=== PATIENT | female | born 1965 | race Caucasian/White ===

== ENCOUNTER 2020-07-14 18:51 | Emergency (ER) | payer OTHER, SELFPAY ==
--- NOTE | ~2020-07-14 | CT_ITS ---
EXAMINATION: CT HEAD WITHOUT CONTRAST CT CERVICAL SPINE WITHOUT CONTRAST CLINICAL INFORMATION: Trauma COMPARISON: None. TECHNIQUE: Multidetector CT imaging of the head and cervical spine was performed without the use of intravenous contrast. Multiplanar reformats are reviewed. This CT examination was performed using dose optimization techniques as appropriate, variously including the following: *Automated exposure control *Adjustment of mA and/or kV according to patient size (this includes techniques or standardized protocols for targeted exams where dose is matched to indication/reason for exam; i.e. extremities or head) *Use of iterative reconstruction technique DLP: 970 mGy-cm. FINDINGS: There is no evidence of acute intracranial hemorrhage or territorial infarction. No abnormal mass effect or midline shift is seen. Carcamo to white matter differentiation is well preserved. No extra-axial fluid collections are identified. The ventricles are normal in size. There is no abnormal attenuation within the brain parenchyma. Right frontotemporal subgaleal hematoma. Underlying calvarium intact.. Small mucous retention cyst present within the left maxillary sinus. Remainder of the paranasal sinuses are clear. Mastoid air cells and middle ear cavities are clear. Atlantooccipital alignment is maintained. The vertebral bodies and posterior elements align normally. No acute fracture or subluxation. Vertebral body heights are preserved. Small endplate ossified present C5-C6. Moderate endplate osteophytes at C6-C7. No significant central canal or foraminal narrowing. The paraspinal soft tissues are unremarkable. The imaged lung apices are clear. CT/CT head/brain wo con IMPRESSION: No acute intracranial pathology. No cervical spine fracture or malalignment.
--- NOTE | ~2020-07-14 | CT_ITS ---
EXAMINATION: CT HEAD WITHOUT CONTRAST CT CERVICAL SPINE WITHOUT CONTRAST CLINICAL INFORMATION: Trauma COMPARISON: None. TECHNIQUE: Multidetector CT imaging of the head and cervical spine was performed without the use of intravenous contrast. Multiplanar reformats are reviewed. This CT examination was performed using dose optimization techniques as appropriate, variously including the following: *Automated exposure control *Adjustment of mA and/or kV according to patient size (this includes techniques or standardized protocols for targeted exams where dose is matched to indication/reason for exam; i.e. extremities or head) *Use of iterative reconstruction technique DLP: 970 mGy-cm. FINDINGS: There is no evidence of acute intracranial hemorrhage or territorial infarction. No abnormal mass effect or midline shift is seen. Carcamo to white matter differentiation is well preserved. No extra-axial fluid collections are identified. The ventricles are normal in size. There is no abnormal attenuation within the brain parenchyma. Right frontotemporal subgaleal hematoma. Underlying calvarium intact.. Small mucous retention cyst present within the left maxillary sinus. Remainder of the paranasal sinuses are clear. Mastoid air cells and middle ear cavities are clear. Atlantooccipital alignment is maintained. The vertebral bodies and posterior elements align normally. No acute fracture or subluxation. Vertebral body heights are preserved. Small endplate ossified present C5-C6. Moderate endplate osteophytes at C6-C7. No significant central canal or foraminal narrowing. The paraspinal soft tissues are unremarkable. The imaged lung apices are clear. CT/CT cervical spine wo con IMPRESSION: No acute intracranial pathology. No cervical spine fracture or malalignment.
--- NOTE | ~2020-07-14 | XR_ITS ---
EXAMINATION: XR HAND/WRIST, LEFT CLINICAL INFORMATION: Fall. COMPARISON: None TECHNIQUE: AP, oblique, lateral, and scaphoid views of the left hand and wrist. FINDINGS: No acute fracture or dislocation. Normal carpal alignment. Mild radiocarpal joint space narrowing with tiny marginal osteophytes. No osseous erosion. No abnormal soft tissue calcification. XR/XR hand wrist LT IMPRESSION: No acute fracture or dislocation. Minimal degenerative arthritis at the radiocarpal joint.
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
[2020-07-14 19:05] VITALS: BP 135/75; PULSE 75; RESP 16; TEMP 36.5; O2SAT 100; BMI 23.0
--- NOTE | 2020-07-14 19:05 | PC.NURSE ---
Dr Martins called to assess the patient at this time, Dr Martins is at bedside with this RN
[2020-07-14] MEDS: Acetaminophen 325 MG TABLET 650 MG PO (20:54)
== END 2020-07-14 21:49 | disposition home or self-care (01) ==
PROVIDERS: Emergency Provider Internal Medicine; PCP Internal Medicine
DX: S60.212A Contusion of left wrist, initial encounter (principal); S00.81XA Abrasion of other part of head, initial encounter; V86.59XA Driver of other special all-terrain or other off-road motor vehicle injured in nontraffic accident, initial encounter; Y93.89 Activity, other specified; Y92.828 Other wilderness area as the place of occurrence of the external cause; Y99.8 Other external cause status
CPT/HCPCS: 29125; 70450; 72125; 73110; 73130; 99283; 99284

== ENCOUNTER 2020-07-19 09:42 | Outpatient (REF) | payer OTHER, SELFPAY ==
--- NOTE | ~2020-07-19 | XR_ITS ---
EXAMINATION: LEFT WRIST X-RAY CLINICAL INFORMATION: Pain COMPARISON: Previous x-ray 07/15/2019 TECHNIQUE: 4 views of the left wrist FINDINGS: There is question of a nondisplaced fracture of the distal radius/radial styloid intra-articular with the radiocarpal joint. No other fracture is seen. Bone alignment is normal. Joint spaces are normal. Soft tissues are unremarkable. XR/XR wrist LT w scaphoid IMPRESSION: Question nondisplaced fracture of the distal radius /radial styloid intra-articular with the radiocarpal joint.
== END 2020-07-19 09:43 | disposition home or self-care (01) ==
LOC: HO.HOSX 09:42
PROVIDERS: Visit Provider Physician Assistant
DX: S69.92XA Unspecified injury of left wrist, hand and finger(s), initial encounter (principal)
CPT/HCPCS: 29075; 73110

== ENCOUNTER 2020-08-14 08:25 | Outpatient (REF) | payer OTHER, SELFPAY ==
--- NOTE | ~2020-08-14 | XR_ITS ---
EXAMINATION: XR WRIST, LEFT CLINICAL INFORMATION: M25.532 - Pain in left wrist COMPARISON: 07/19/2020 TECHNIQUE: PA, lateral, oblique, and scaphoid views of the left wrist. FINDINGS: Again seen is a subtle nondisplaced intra-articular distal radial fracture. Alignment appears unchanged as compared to prior. Fracture lines appear slightly less pronounced, potentially due to early changes of healing. No definite callus formation on these images. No new fractures are identified. The scaphoid bone is intact. There is mild osteoarthritis at the first CMC joint. Joints are otherwise relatively well-preserved. Soft tissues are mildly swollen, similar to prior. XR/XR wrist LT w scaphoid IMPRESSION: Subtle nondisplaced distal radial fracture is unchanged in alignment from prior. The fracture line appears less apparent which may be due to early changes of healing, though no callus formation is identified to clearly indicate healing.
--- NOTE | ~2020-08-14 | XR_ITS ---
EXAMINATION: XR WRIST, LEFT CLINICAL INFORMATION: M25.532 - Pain in left wrist COMPARISON: 07/19/2020 TECHNIQUE: PA, lateral, oblique, and scaphoid views of the left wrist. FINDINGS: Again seen is a subtle nondisplaced intra-articular distal radial fracture. Alignment appears unchanged as compared to prior. Fracture lines appear slightly less pronounced, potentially due to early changes of healing. No definite callus formation on these images. No new fractures are identified. The scaphoid bone is intact. There is mild osteoarthritis at the first CMC joint. Joints are otherwise relatively well-preserved. Soft tissues are mildly swollen, similar to prior. XR/XR wrist LT 2V IMPRESSION: Subtle nondisplaced distal radial fracture is unchanged in alignment from prior. The fracture line appears less apparent which may be due to early changes of healing, though no callus formation is identified to clearly indicate healing.
== END 2020-08-14 08:26 | disposition home or self-care (01) ==
LOC: HO.HOSX 08:25
PROVIDERS: Visit Provider Physician Assistant
DX: M25.532 Pain in left wrist (principal)
CPT/HCPCS: 73100; 73110

== ENCOUNTER 2020-08-23 07:23 | Outpatient (REF) | payer OTHER, SELFPAY | END 2020-08-23 07:24 | disposition home or self-care (01) | LOC: HO.MRI 07:23 | PROVIDERS: Visit Provider Physician Assistant | DX: Z13.89 Encounter for screening for other disorder (principal) ==

== ENCOUNTER 2020-09-03 08:55 | Outpatient (REF) | payer OTHER, SELFPAY ==
[2020-09-03 11:32] LABS: Glucose Urine UA NEG (NEG); Leukocyte Esterase Urine NEG (NEG); Nitrite Urine NEG (NEG); PH 7.5 (5.0-8.0); Specific Gravity - Urine <= 1.005 (1.005-1.025); Urine Blood 1+ (NEG); Urine Ketones NEG (NEG); Urine Protein NEG (NEG-TRACE)
[2020-09-03 11:33] LABS: Appearance Urine CLEAR; Color Urine STRAW
[2020-09-03 11:33] LABS: Hemoglobin 14.4 g/dl (12.0-16.0); Mean Corpuscular HGB Conc 33.5 g/dl (31.0-35.0); Mean Corpuscular Hemoglobin 32.1 pg (27.0-33.0); Mean Corpuscular Volume 95.8 fL (80-98); Mean Platelet Volume 10.5 fL (9.4-12.3); Platelet Count 252 X10*3/uL (160-400); Red Blood Count 4.49 X10*6/uL (4.20-5.50); Red Cell Distribution Width 12.4 % (11.0-16.0); White Blood Count 5.6 X10*3/uL (4.8-10.8)
[2020-09-03 12:07] LABS: Alanine Aminotransferase 21 U/L (0-31); Albumin Level 4.3 g/dL (3.5-5.0); Alkaline Phosphatase 58 U/L (39-117); Anion Gap 13 (12-20); Aspartate Amino Transferase 20 U/L (5-31); Bilirubin Total 0.8 mg/dL (0.0-1.0); Blood Urea Nitrogen 17 mg/dL (9-16); Calcium 9.4 mg/dL (8.4-10.2); Carbon Dioxide 29 mmol/L (22-29); Chloride 103 mmol/L (96-108); Cholesterol 264 mg/dL; Estimated Glomerular Filt Rate > 60; Glucose Fasting 94 mg/dL (60-99); HDL Cholesterol 72 mg/dL; LDL Cholesterol Calculated 172 mg/dl; Potassium 4.7 mmol/L (3.3-5.1); Sodium 140 mmol/L (135-145); Triglycerides 104 mg/dL
[2020-09-03 12:08] LABS: TSH reflex Free T4 0.97 uIU/mL (0.32-4.0)
[2020-09-03 12:22] LABS: RBC Urine 0-2 /HPF (0); Squamous Epithelial Cell Urine TRACE /LPF; WBC Urine 0-2 /HPF (0-4)
[2020-09-06 15:11] LABS: HPV mRNA E6/E7 Not Detected (Not Detected)
== END 2020-09-03 08:56 | disposition home or self-care (01) ==
LOC: HO.LAB 08:55
PROVIDERS: Visit Provider Internal Medicine
DX: Z00.00 Encounter for general adult medical examination without abnormal findings (principal); Z11.51 Encounter for screening for human papillomavirus (HPV)
CPT/HCPCS: 36415; 80053; 80061; 81001; 84443; 85027; 87624; 88142

== ENCOUNTER 2020-09-03 09:19 | Outpatient (REF) | payer OTHER, SELFPAY | END 2020-09-03 09:20 | disposition home or self-care (01) | LOC: HO.HMGCLDS 09:19 | PROVIDERS: PCP Internal Medicine; Visit Provider Internal Medicine | DX: Z13.89 Encounter for screening for other disorder (principal) ==

== ENCOUNTER 2020-10-21 09:06 | Outpatient (REF) | payer OTHER, SELFPAY ==
--- NOTE | ~2020-10-21 | MM_ITS ---
EXAMINATION: MM SCREENING DIGITAL BREAST TOMOSYNTHESIS, BILATERAL CLINICAL INFORMATION: Screening. Asymptomatic. The lifetime risk of breast cancer based on the Tyrer-Cuzick Model is 5.4%. COMPARISON: Mammography: August 20, 2015 and April 10, 2014 TECHNIQUE: Digital breast tomosynthesis is performed in both the craniocaudal and mediolateral oblique views along with computer-aided detection (CAD). Synthesized 2D images are generated from the tomosynthesis. FINDINGS: There are scattered areas of fibroglandular density (ACR BI-RADS breast composition Category b). There are no significant masses, abnormal calcifications, or other abnormalities. MM/MM tomosynthesis screening BI IMPRESSION: There are no significant changes from prior study. ASSESSMENT: BI-RADS 1: Negative RECOMMENDATION: Routine annual mammography screening. This patient's information was entered into a reminder system with a target due date for their next mammogram.
== END 2020-10-21 09:07 | disposition home or self-care (01) ==
LOC: HO.MAMMO 09:06
PROVIDERS: Visit Provider Internal Medicine
DX: Z12.31 Encounter for screening mammogram for malignant neoplasm of breast (principal)
CPT/HCPCS: 77063; 77067

== ENCOUNTER 2021-12-24 11:11 | Outpatient (REF) | payer OTHER, SELFPAY ==
--- NOTE | ~2021-12-24 | XR_ITS ---
EXAMINATION: XR FOOT, RIGHT CLINICAL INFORMATION: Pain. Injury. COMPARISON: None. TECHNIQUE: AP, lateral, and oblique views of the right foot. FINDINGS: Bone alignment is normal. No fracture or dislocation is seen. Joint spaces are normal. There are small calcaneal spurs. Soft tissues are otherwise normal. XR/XR foot RT 2V IMPRESSION: Small calcaneal spurs, otherwise unremarkable exam.
== END 2021-12-24 11:12 | disposition home or self-care (01) ==
LOC: HO.HMGCX 11:11
PROVIDERS: PCP Internal Medicine; Visit Provider Internal Medicine
DX: S99.921A Unspecified injury of right foot, initial encounter (principal)
CPT/HCPCS: 73620

== ENCOUNTER 2022-07-21 08:39 | Outpatient (REF) | payer OTHER, SELFPAY ==
--- NOTE | ~2022-07-21 | MM_ITS ---
EXAMINATION: MM SCREENING DIGITAL BREAST TOMOSYNTHESIS, BILATERAL CLINICAL INFORMATION: Screening. Asymptomatic. The lifetime risk of breast cancer based on the Tyrer-Cuzick Model is 5.1%. COMPARISON: Mammography: October 21, 2020 and studies dating back to April 10, 2014 TECHNIQUE: Digital breast tomosynthesis is performed in both the craniocaudal and mediolateral oblique views along with computer-aided detection (CAD). Synthesized 2D images are generated from the tomosynthesis. FINDINGS: There are scattered areas of fibroglandular density (ACR BI-RADS breast composition Category b). There are no new significant masses, abnormal calcifications, or other abnormalities. MM/MM tomosynthesis screening BI IMPRESSION: No significant changes ASSESSMENT: BI-RADS 1: Negative RECOMMENDATION: Routine annual mammography screening. This patient's information was entered into a reminder system with a target due date for their next mammogram.
== END 2022-07-21 08:40 | disposition home or self-care (01) ==
LOC: HO.MAMMO 08:39
PROVIDERS: PCP Internal Medicine; Visit Provider Internal Medicine
DX: Z12.31 Encounter for screening mammogram for malignant neoplasm of breast (principal)
CPT/HCPCS: 77063; 77067

== ENCOUNTER 2023-10-26 08:57 | Outpatient (AMB) | payer OTHER, SELFPAY ==
[2023-10-26 09:04] VITALS: BP 108/68; PULSE 78; O2SAT 99; BMI 24.3
--- NOTE | 2023-10-26 09:04 | MHC.PC.OV ---
Vital Signs 10/26/23 09:04 Height 5 ft 3 in Weight 137 lb BMI 24.3 BP 108/68 Blood Pressure Location Lt brachial Position Sitting Pulse 78 Pulse Source Pulse Oximeter Pulse Oximetry (%) 99 Oxygen Delivery Method Room Air Intake Visit Reasons: physical Intake Note: Pt is here today for PE. Pt states that she has a cough for 3 weeks now. Allergies No Known Allergies Allergy (Verified 10/26/23 09:04) Medication List - Last Reconciled 10/26/23 by Maru Llanos MD No Known Home Meds Tobacco use date assessed: 10/26/23 Dental Screening Dental Screen Date: 10/26/23 Did you have a dental visit in the last 12 months?: Yes Did you have a dental problem in the last 6 months where you did not have access to dental care?: No Was dental information given to patient?: Patient has dentist HPI physical HPI Details Pt presents for PE. 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 1. Little interest or pleasure in doing things: not at all 2. Feeling down, depressed, or hopeless: not at all 3. Trouble falling or staying asleep, or sleeping too much: not at all 4. Feeling tired or having little energy: not at all 5. Poor appetite or overeating: not at all 6. Feeling bad about yourself - or that you are a failure or have let yourself or your family down: not at all 7. Trouble concentrating on things, such as reading the newspaper or watching television: not at all 8. Moving or speaking so slowly that other people could have noticed. Or the opposite - being so fidgety or restless that you have been moving around a lot more than usual: not at all 9. Thoughts that you would be better off or of hurting yourself in some way: not at all Total score: 0 Depression Screening Interpretation: Negative Depression Screening Done: Yes Source: Developed by Drs. Jon Dickey, Romina Goodman, Howard Servin and colleagues, with an educational juancho from [employer]. Thrive Questionnaire Date Thrive assessed: 10/26/23 I am a: Patient What is your living situation today?: I have a steady place to live Within the past 12 months, did the food you bought not last and you didn't have the money to get more?: Never true Within the past 12 months, did you worry whether your food would run out before you got money to buy more?: Never true Do you have trouble paying for medicines?: No Do you have trouble getting transportation to medical appointments?: No Do you have trouble paying your heating and electricity bill?: No Do you have trouble taking care of your child, family member or friend?: No Do you have trouble with day-to-day activities such as bathing, preparing meals, shopping, managing finances, etc.?: No Are you currently unemployed and looking for a job?: No Are you interested in more education?: No Please select the resources that you would like help with: None THRIVE Score: 0 AUDIT C Alcohol Use Questionnaire (AUDIT-C) 1. How often do you have a drink containing alcohol?: 2-4 times a month 2. How many drinks containing alcohol do you have on a typical day when you are drinking?: 1 or 2 3. How often do you have six or more drinks on one occasion?: Never Total Score: 2 GLENDA-7 AMB Questionnaire GLENDA-7 Date GLENDA - 7 assessed: 10/26/23 Feeling nervous, anxious, or on edge: 0 = Not at all Not being able to stop or control worryin = Not at all Worrying too much about different things: 0 = Not at all Trouble relaxin = Not at all Being so restless that it is hard to sit still: 0 = Not at all Becoming easily annoyed or irritable: 0 = Not at all Feeling afraid as if something awful might happen: 0 = Not at all Total GLENDA-7 score (0-4 normal; 5-9 mild; 10-14 moderate; 15-21 severe): 0 Source: Developed by Drs. Jon Dickey, Romina Goodman, Howard Servin and colleagues, with an educational juancho from [employer]. Review of Systems Const All systems reviewed & are unremarkable except as noted in HPI and below Reports no additional complaints Eyes Reports no additional complaints ENT Reports no additional complaints Card Reports no additional complaints Resp Reports no additional complaints GI Reports no additional complaints Reports no additional complaints Physical exam (Primary Care) Vital Signs: Last Vital Signs Pulse 78 10/26/23 09:04 BP 108/68 10/26/23 09:04 Pulse Ox 99 10/26/23 09:04 Oxygen Delivery Method Room Air 10/26/23 09:04 BMI result Body Mass Index 24.3 Tobacco/Smoking Status: Tobacco use Status Tobacco use date assessed 10/26/23 10/26/23 09:05 Patient Tobacco Use Status Former Tobacco user (15 10/26/23 09:05 years ago) e-Cigarette/Vaping Use Never Used 10/26/23 09:05 PHQ-9: PHQ-9 Score PHQ-9: Total score 0 10/26/23 09:33 Depression Screening Interpretation: Negative Thrive Assessment: Date of Thrive Assessment Date Thrive assessed 12/24/21 10/26/23 09:05 Const General: no acute distress HENMT Head: Yes normal to inspection Ears: hearing grossly normal bilaterally General nose exam: Normal external nose present Face and sinus: Yes normal facial exam Mouth: Normal oral and palatal mucosa present Throat: Yes posterior oropharynx normal Eyes General: appearance normal, both eyes and all related structures Neck Neck: Yes no lymphadenopathy and Yes supple Resp Effort & Inspection: normal respiratory effort Auscultation: clear to auscultation bilaterally Cardio Rhythm: regular rhythm Heart sounds: S1 normal heart sound present and S2 normal heart sound present GI Inspection: Yes normal to inspection Palpation (GI): Soft to palpation Percussion: Yes normal to percussion Auscultation: normal bowel sounds Assessment and Plan Assessment & Plan (1) Annual physical exam: Comment: Normal Pap smear 2021 Code(s): Z00.00 - Encounter for general adult medical examination without abnormal findings Plan: Well-balanced diet regular exercise discussed with the patient she would declined mammogram patient will be referred to GI for colonoscopy and she will have a fasting blood work today. DEXA will be scheduled (2) Hyperlipemia: Code(s): E78.5 - Hyperlipidemia, unspecified Plan: Low-cholesterol diet regular physical activity discussed with the patient (3) FHx: colon cancer: Comment: sister late 40's Code(s): Z80.0 - Family history of malignant neoplasm of digestive organs Plan: Referred to GI for colonoscopy Orders: Orders Comprehensive [place]. Panel Fast Today E78.5 - Hyperlipidemia, unspecified, Z00.00 - Encounter for general adult medical examination without abnormal findings Lipid Panel Today E78.5 - Hyperlipidemia, unspecified, Z00.00 - Encounter for general adult medical examination without abnormal findings Complete Blood Count Auto Diff Today E78.5 - Hyperlipidemia, unspecified, Z00.00 - Encounter for general adult medical examination without abnormal findings TSH reflex Free T4 Today E78.5 - Hyperlipidemia, unspecified, Z00.00 - Encounter for general adult medical examination without abnormal findings Vitamin D 25-OH Total Today E78.5 - Hyperlipidemia, unspecified, Z00.00 - Encounter for general adult medical examination without abnormal findings UA w Microscopic Today E78.5 - Hyperlipidemia, unspecified, Z00.00 - Encounter for general adult medical examination without abnormal findings XR DEXA axial skeleton Today Z00.00 - Encounter for general adult medical examination without abnormal findings Referrals Gastroenterology Referral Z00.00 - Encounter for general adult medical examination without abnormal findings, Z80.0 - Family history of malignant neoplasm of digestive organs Coding Level of Care Code Est Pt Prev Care 40-64y([id number]) Diagnoses Annual physical exam Z00.00 Hyperlipemia E78.5 FHx: colon cancer Z80.0
== END 2023-10-26 09:48 | disposition home or self-care (01) ==
PROVIDERS: PCP Internal Medicine; Visit Provider Internal Medicine
DX: Z00.00 Encounter for general adult medical examination without abnormal findings (principal); E78.5 Hyperlipidemia, unspecified; Z80.0 Family history of malignant neoplasm of digestive organs
CPT/HCPCS: 99396

== ENCOUNTER 2023-10-26 09:49 | Outpatient (REF) | payer OTHER, SELFPAY ==
[2023-10-26 13:02] LABS: MANUAL DIFF FLAG NO
[2023-10-26 13:04] LABS: Appearance Urine Clear; Color Urine Yellow; Glucose Urine UA Negative (Negative); Leukocyte Esterase Urine Negative (Negative); Nitrite Urine Negative (Negative); PH 7.5 (5.0-9.0); Urine Blood Negative (Negative); Urine Ketones Negative (Negative); Urine Protein Negative (Neg-Trace)
[2023-10-26 13:14] LABS: Bacteria Urine None Seen (None Seen); Hyaline Casts Urine 0-2 /LPF (0-2); RBC Urine 0-2 /HPF (0-2); Squamous Epithelial Cell Urine 0-2 /HPF (0-2); WBC Urine 0-5 /HPF (0-5)
[2023-10-26 13:18] LABS: Basophils Percent Auto 0.7 % (0-2); Eosinophils Absolute Auto 0.3 X10*3/uL (0.0-0.4); Eosinophils Percent Auto 4.2 % (0-4); Hematocrit 41.2 % (37.0-47.0); Hemoglobin 14.3 g/dl (12.0-16.0); Imm Gran Abs Auto 0.04 X10*3/uL (0.00-0.03); Imm Gran Pct Auto 0.7 % (0.0-0.4); Mean Corpuscular HGB Conc 34.7 g/dl (31.0-35.0); Mean Corpuscular Hemoglobin 33.2 pg (27.0-33.0); Mean Corpuscular Volume 95.6 fL (80.0-98.0); Mean Platelet Volume 10.2 fL (9.4-12.3); Monocytes Absolute Auto 0.3 X10*3/uL (0.1-1.2); Monocytes Percent Auto 4.9 % (2-11); Neutrophils Absolute Auto 3.3 x10*3/uL (2.0-8.3); Neutrophils Percent Auto 55.5 % (45-73); Platelet Count 285 X10*3/uL (160-400); Red Blood Count 4.31 X10*6/uL (4.20-5.50); Red Cell Distribution Width 12.3 % (11.0-16.0); White Blood Count 5.9 X10*3/uL (4.8-10.8)
[2023-10-26 13:51] LABS: Alanine Aminotransferase 16 U/L (0-31); Alkaline Phosphatase 65 U/L (39-117); Anion Gap 13 (12-20); Aspartate Amino Transferase 21 U/L (5-31); Bilirubin Total 0.7 mg/dL (0.0-1.0); Blood Urea Nitrogen 15 mg/dL (9-16); Calcium 9.4 mg/dL (8.4-10.2); Carbon Dioxide 28 mmol/L (22-29); Chloride 104 mmol/L (96-108); Cholesterol 245 mg/dL (<200); Estimated Glomerular Filt Rate > 60; Glucose Fasting 93 mg/dL (60-99); HDL Cholesterol 59 mg/dL (>40); LDL Cholesterol Calculated 167 mg/dL (<100); Sodium 141 mmol/L (135-145); Total Protein 7.2 g/dL (6.5-8.0); Triglycerides 95 mg/dL (<150)
[2023-10-26 14:07] LABS: TSH reflex Free T4 1.02 uIU/mL (0.32-4.0)
== END 2023-10-26 09:50 | disposition home or self-care (01) ==
LOC: HO.HMGCLDS 09:49
PROVIDERS: PCP Internal Medicine; Visit Provider Internal Medicine
DX: Z00.00 Encounter for general adult medical examination without abnormal findings (principal); E78.5 Hyperlipidemia, unspecified
CPT/HCPCS: 36415; 80053; 80061; 81001; 82306; 84443; 85025

== ENCOUNTER 2024-02-17 09:43 | Outpatient (REF) | payer OTHER, SELFPAY ==
[2024-02-17 14:23] LABS: Cholesterol 206 mg/dL (<200); HDL Cholesterol 68 mg/dL (>40); LDL Cholesterol Calculated 125 mg/dL (<100); Triglycerides 68 mg/dL (<150)
== END 2024-02-17 09:44 | disposition home or self-care (01) ==
LOC: HO.HMGCLDS 09:43
PROVIDERS: PCP Internal Medicine; Visit Provider Internal Medicine
DX: Z01.818 Encounter for other preprocedural examination (principal); E78.5 Hyperlipidemia, unspecified; H26.9 Unspecified cataract; Z79.899 Other long term (current) drug therapy
CPT/HCPCS: 36415; 80061; 96127

== ENCOUNTER 2024-02-17 10:09 | Outpatient (AMB) | payer OTHER, SELFPAY ==
[2024-02-17 10:24] VITALS: BP 110/70; PULSE 69; O2SAT 98; BMI 24.1
--- NOTE | 2024-02-17 10:24 | MHC.PC.OV ---
Vital Signs 02/17/24 10:24 Height 5 ft 3 in Weight 136 lb BMI 24.1 BP 110/70 Blood Pressure Location Lt brachial Position Sitting Pulse 69 Pulse Source Pulse Oximeter Pulse Oximetry (%) 98 Oxygen Delivery Method Room Air Intake Visit Reasons: Pre Op for Eye Surgery Intake Note: Pt is here today for pre op visit pt is having cataract surgery on 02/29/[address] Hartman. Allergies No Known Allergies Allergy (Verified 02/17/24 10:27) Medication List - Last Reconciled 02/17/24 by Maru Llanos MD pravastatin 20 mg PO DAILY Tobacco use date assessed: 02/17/24 Dental Screening Dental Screen Date: 10/26/23 HPI Pre Op for Eye Surgery HPI Details Patient presents for preop for cataract surgery. 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 1. Little interest or pleasure in doing things: not at all 2. Feeling down, depressed, or hopeless: not at all 3. Trouble falling or staying asleep, or sleeping too much: not at all 4. Feeling tired or having little energy: not at all 5. Poor appetite or overeating: not at all 6. Feeling bad about yourself - or that you are a failure or have let yourself or your family down: not at all 7. Trouble concentrating on things, such as reading the newspaper or watching television: not at all 8. Moving or speaking so slowly that other people could have noticed. Or the opposite - being so fidgety or restless that you have been moving around a lot more than usual: not at all 9. Thoughts that you would be better off or of hurting yourself in some way: not at all Total score: 0 Depression Screening Interpretation: Negative Depression Screening Done: Yes 87834 - PHQ-9 Billing: Yes Source: Developed by Drs. Jon Dcikey, Romina Goodman, Howard Servin and colleagues, with an educational juancho from [employer]. Thrive Questionnaire Date Thrive assessed: 02/17/24 I am a: Patient What is your living situation today?: I have a steady place to live Within the past 12 months, did the food you bought not last and you didn't have the money to get more?: Never true Within the past 12 months, did you worry whether your food would run out before you got money to buy more?: Never true Do you have trouble paying for medicines?: No Do you have trouble getting transportation to medical appointments?: No Do you have trouble paying your heating and electricity bill?: No Do you have trouble taking care of your child, family member or friend?: No Do you have trouble with day-to-day activities such as bathing, preparing meals, shopping, managing finances, etc.?: No Are you currently unemployed and looking for a job?: No Are you interested in more education?: No Please select the resources that you would like help with: None Currently or been in a relationship where the following occur: No concerns reported THRIVE Score: 0 AUDIT C Alcohol Use Questionnaire (AUDIT-C) 1. How often do you have a drink containing alcohol?: 2-3 times a week 2. How many drinks containing alcohol do you have on a typical day when you are drinking?: 1 or 2 3. How often do you have six or more drinks on one occasion?: Never Total Score: 3 GLENDA-7 AMB Questionnaire GLENDA-7 Date GLENDA - 7 assessed: 02/17/24 Feeling nervous, anxious, or on edge: 0 = Not at all Not being able to stop or control worryin = Not at all Worrying too much about different things: 0 = Not at all Trouble relaxin = Not at all Being so restless that it is hard to sit still: 0 = Not at all Becoming easily annoyed or irritable: 0 = Not at all Feeling afraid as if something awful might happen: 0 = Not at all Total GLENDA-7 score (0-4 normal; 5-9 mild; 10-14 moderate; 15-21 severe): 0 Source: Developed by Drs. Jon Dickey, Romina Goodman, Howard Servin and colleagues, with an educational juancho from [employer]. GLENDA-7 Assessment Billing GLENDA-7 Assessment Tool: GLENDA-7 Assessment 90029 Review of Systems Const All systems reviewed & are unremarkable except as noted in HPI and below ENT Reports no additional complaints Card Reports no additional complaints Resp Reports no additional complaints GI Reports no additional complaints Physical exam (Primary Care) Vital Signs: Last Vital Signs Pulse 69 02/17/24 10:24 BP 110/70 02/17/24 10:24 Pulse Ox 98 02/17/24 10:24 Oxygen Delivery Method Room Air 02/17/24 10:24 BMI result Body Mass Index 24.1 Tobacco/Smoking Status: Tobacco use Status Tobacco use date assessed 02/17/24 02/17/24 10:27 Patient Tobacco Use Status Former Tobacco user (15 02/17/24 10:25 years ago) e-Cigarette/Vaping Use Never Used 02/17/24 10:25 PHQ-9: PHQ-9 Score PHQ-9: Total score 0 02/17/24 10:41 Depression Screening Interpretation: Negative Thrive Assessment: Date of Thrive Assessment Date Thrive assessed 02/17/24 02/17/24 10:41 Currently or been in a relationship where the following occur: No concerns reported Const General: no acute distress HENMT Throat: Yes posterior oropharynx normal Neck Neck: Yes supple Resp Effort & Inspection: normal respiratory effort Auscultation: clear to auscultation bilaterally Cardio Rhythm: regular rhythm Heart sounds: S1 normal heart sound present and S2 normal heart sound present GI Inspection: Yes normal to inspection Coding Level of Care Code Est Pt Level 3 (76168) Diagnoses Hyperlipemia E78.5 Cataract H26.9 Additional Codes GLENDA-7 Assessment Billing - GLENDA-7 Assessment Tool: GLENDA-7 Assessment 38261 ([id number]) Assessment & Plan Assessment & Plan (1) Hyperlipemia: Code(s): E78.5 - Hyperlipidemia, unspecified Category: Medical Plan: Continue pravastatin patient had fasting labs today results pending. (2) Cataract: Code(s): H26.9 - Unspecified cataract Category: Medical Plan: Patient is medically cleared for cataract surgery Orders: Orders Comprehensive [place]. Panel Fast 10 Months E78.5 - Hyperlipidemia, unspecified, H26.9 - Unspecified cataract Lipid Panel 10 Months E78.5 - Hyperlipidemia, unspecified, H26.9 - Unspecified cataract Complete Blood Count Auto Diff 10 Months E78.5 - Hyperlipidemia, unspecified, H26.9 - Unspecified cataract TSH reflex Free T4 10 Months E78.5 - Hyperlipidemia, unspecified, H26.9 - Unspecified cataract Vitamin D 25-OH Total 10 Months E78.5 - Hyperlipidemia, unspecified, H26.9 - Unspecified cataract
== END 2024-02-17 11:22 | disposition home or self-care (01) ==
PROVIDERS: PCP Internal Medicine; Visit Provider Internal Medicine
DX: E78.5 Hyperlipidemia, unspecified (principal); H26.9 Unspecified cataract

== ENCOUNTER 2025-01-19 13:05 | Outpatient (AMB) | payer OTHER, SELFPAY ==
--- NOTE | 2025-01-19 13:06 | A.OFFPC_ITS ---
Vital Signs 01/19/25 13:07 Height 5 ft 3 in Weight 143 lb BMI 25.3 BP 126/70 Blood Pressure Location Lt brachial Position Sitting Respiration 18 Pulse 89 Pulse Source Pulse Oximeter Temp 97.7 F Temp Source Oral Pulse Oximetry (%) 97 Oxygen Delivery Method Room Air Intake Visit Reasons: Regular check up medsreview Intake Note: Pt is here today for a follow up visit. Allergies No Known Allergies Allergy (Verified 01/19/25 13:09) Medication List - Last Reconciled 01/19/25 by Maru Llanos MD hydroxyzine HCl 10 mg PO BEDTIME pravastatin 20 mg PO DAILY Tobacco use date assessed: 01/19/25 Dental Screening Dental Screen Date: 01/19/25 Did you have a dental visit in the last 12 months?: Yes Did you have a dental problem in the last 6 months where you did not have access to dental care?: No Was dental information given to patient?: Patient has dentist HPI Regular check up medsreview HPI Details Pt presents for PE. Pt c/o increased anxiety for the last 2 months. Her father 3 weeks ago at 91 after complications of a fall at home. Patient is grieving. She denies depression change in appetite. 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 1. Little interest or pleasure in doing things: not at all 2. Feeling down, depressed, or hopeless: not at all 3. Trouble falling or staying asleep, or sleeping too much: not at all 4. Feeling tired or having little energy: not at all 5. Poor appetite or overeating: not at all 6. Feeling bad about yourself - or that you are a failure or have let yourself or your family down: not at all 7. Trouble concentrating on things, such as reading the newspaper or watching television: not at all 8. Moving or speaking so slowly that other people could have noticed. Or the opposite - being so fidgety or restless that you have been moving around a lot more than usual: not at all 9. Thoughts that you would be better off or of hurting yourself in some way: not at all Total score: 0 Depression Screening Interpretation: Negative Depression Screening Done: Yes 86771 - PHQ-9 Billing: Yes Source: Developed by Drs. Jon Dickey, Romina Goodman, Howard Servin and colleagues, with an educational juancho from [employer]. Thrive Questionnaire Date Thrive assessed: 01/19/25 I am a: Patient What is your living situation today?: I have a steady place to live Within the past 12 months, did the food you bought not last and you didn't have the money to get more?: Never true Within the past 12 months, did you worry whether your food would run out before you got money to buy more?: Never true Do you have trouble paying for medicines?: No Do you have trouble getting transportation to medical appointments?: No Do you have trouble paying your heating and electricity bill?: No Do you have trouble taking care of your child, family member or friend?: No Do you have trouble with day-to-day activities such as bathing, preparing meals, shopping, managing finances, etc.?: No Are you currently unemployed and looking for a job?: Yes Are you interested in more education?: No Please select the resources that you would like help with: None Currently or been in a relationship where the following occur: No concerns reported THRIVE Score: 0 AUDIT C Alcohol Use Questionnaire (AUDIT-C) 1. How often do you have a drink containing alcohol?: 2-3 times a week 2. How many drinks containing alcohol do you have on a typical day when you are drinking?: 3 or 4 3. How often do you have six or more drinks on one occasion?: Never Total Score: 4 GLENDA-7 AMB Questionnaire GLENDA-7 Date GLENDA - 7 assessed: 01/19/25 Feeling nervous, anxious, or on edge: 1 = Several days Not being able to stop or control worryin = Several days Worrying too much about different things: 1 = Several days Being so restless that it is hard to sit still: 0 = Not at all Becoming easily annoyed or irritable: 0 = Not at all Feeling afraid as if something awful might happen: 0 = Not at all Source: Developed by Drs. Jon Dickey, Romina Goodman, Howard Servin and colleagues, with an educational juancho from [employer]. GLENDA-7 Assessment Billing GLENDA-7 Assessment Tool: GLENDA-7 Assessment 82115 Review of Systems Const All systems reviewed & are unremarkable except as noted in HPI and below Eyes Reports no additional complaints ENT Reports no additional complaints Card Reports no additional complaints Resp Reports no additional complaints GI Reports no additional complaints Reports no additional complaints Physical exam (Primary Care) Vital Signs: Last Vital Signs Temp 97.7 F 01/19/25 13:07 Pulse 89 01/19/25 13:07 Resp 18 01/19/25 13:07 BP 126/70 01/19/25 13:07 Pulse Ox 97 01/19/25 13:07 Oxygen Delivery Method Room Air 01/19/25 13:07 BMI result Body Mass Index 25.3 Tobacco/Smoking Status: Tobacco use Status Tobacco use date assessed 01/19/25 01/19/25 13:13 Patient Tobacco Use Status Former Tobacco user (15 01/19/25 13:07 years ago) e-Cigarette/Vaping Use Never Used 01/19/25 13:07 PHQ-9: PHQ-9 Score PHQ-9: Total score 0 01/19/25 13:43 Depression Screening Interpretation: Negative Thrive Assessment: Date of Thrive Assessment Date Thrive assessed 01/19/25 01/19/25 13:13 Currently or been in a relationship where the following occur: No concerns reported Const General: no acute distress HENMT Head: Yes normal to inspection Ears: TM's normal bilaterally Face and sinus: Yes normal facial exam Mouth: Normal oral and palatal mucosa present Eyes General: appearance normal, both eyes and all related structures Neck Neck: Yes no lymphadenopathy and Yes supple Resp Effort & Inspection: normal respiratory effort Auscultation: clear to auscultation bilaterally Cardio Rhythm: regular rhythm Heart sounds: S1 normal heart sound present and S2 normal heart sound present GI Inspection: Yes normal to inspection Palpation (GI): Soft to palpation Percussion: Yes normal to percussion Auscultation: normal bowel sounds Coding Level of Care Code Est Pt Prev Care 40-64y(92905) Diagnoses Annual physical exam Z00.00 Hyperlipemia E78.5 Anxiety F41.9 Additional Codes GLENDA-7 Assessment Billing - GLENDA-7 Assessment Tool: GLENDA-7 Assessment 95265 ([id number]) PHQ-9 - 75654 - PHQ-9 Billing: Yes ([id number]) Assessment & Plan Assessment & Plan (1) Annual physical exam: Comment: Normal Pap smear 2020 Code(s): Z00.00 - Encounter for general adult medical examination without abnormal findings Category: Medical Plan: Well-balanced diet regular physical activity discussed with the patient, Patient will return for fasting blood work, she we will schedule mammogram and will be referred to GI for colonoscopy (2) Hyperlipemia: Code(s): E78.5 - Hyperlipidemia, unspecified Category: Medical Plan: Continue pravastatin (3) Anxiety: Code(s): F41.9 - Anxiety disorder, unspecified Category: Medical Plan: Stress management and counseling discussed with the patient. Hydroxyzine 10 mg q.h.s. and PRN will be started. Patient will follow-up in 1 month Orders: Orders MM screening mammo BI Today Z12.31 - Encounter for screening mammogram for malignant neoplasm of breast Lipid Panel Today E78.5 - Hyperlipidemia, unspecified, Z00.00 - Encounter for general adult medical examination without abnormal findings TSH reflex Free T4 Today E78.5 - Hyperlipidemia, unspecified, Z00.00 - Encounter for general adult medical examination without abnormal findings UA w Microscopic Today E78.5 - Hyperlipidemia, unspecified, Z00.00 - Encounter for general adult medical examination without abnormal findings Vitamin D 25-OH Total Today E78.5 - Hyperlipidemia, unspecified, Z00.00 - Encounter for general adult medical examination without abnormal findings Comprehensive [employer] Panel Fast Today E78.5 - Hyperlipidemia, unspecified, Z00.00 - Encounter for general adult medical examination without abnormal findings Complete Blood Count Auto Diff Today E78.5 - Hyperlipidemia, unspecified, Z00.00 - Encounter for general adult medical examination without abnormal findings Referrals Gastroenterology Referral Z00.00 - Encounter for general adult medical examination without abnormal findings Medications: New hydroxyzine HCl 10 mg PO BEDTIME 30 tabs 0RF
[2025-01-19 13:07] VITALS: BP 126/70; PULSE 89; RESP 18; TEMP 36.5; O2SAT 97; BMI 25.3
== END 2025-01-19 14:13 | disposition home or self-care (01) ==
LOC: HO.HMCC 13:06
PROVIDERS: PCP Internal Medicine; Visit Provider Internal Medicine
DX: Z00.00 Encounter for general adult medical examination without abnormal findings (principal); E78.5 Hyperlipidemia, unspecified; F41.9 Anxiety disorder, unspecified

== ENCOUNTER → 2025-01-19 13:05 | Outpatient (BNVA) | payer OTHER, SELFPAY | PROVIDERS: PCP Internal Medicine; Visit Provider Internal Medicine | DX: Z00.00 Encounter for general adult medical examination without abnormal findings (principal); F41.9 Anxiety disorder, unspecified; I10 Essential (primary) hypertension; Z79.899 Other long term (current) drug therapy; E78.5 Hyperlipidemia, unspecified | CPT/HCPCS: 96127 ==

== ENCOUNTER 2025-01-23 08:50 | Outpatient (REF) | payer OTHER, SELFPAY ==
[2025-01-23 10:33] LABS: Appearance Urine Clear; Glucose Urine UA Negative (Negative); PH 8.0 (5.0-9.0); Specific Gravity - Urine <= 1.005 (1.005-1.025)
[2025-01-23 10:40] LABS: MANUAL DIFF FLAG NO
[2025-01-23 10:47] LABS: Hematocrit 43.5 % (37.0-47.0); Hemoglobin 14.7 g/dl (12.0-16.0); Imm Gran Abs Auto 0.01 X10*3/uL (0.00-0.03); Imm Gran Pct Auto 0.2 % (0.0-0.4); Lymphocytes Absolute Auto 1.8 X10*3/uL (1.2-4.9); Mean Corpuscular HGB Conc 33.8 g/dl (31.0-35.0); Mean Corpuscular Hemoglobin 32.2 pg (27.0-33.0); Mean Corpuscular Volume 95.4 fL (80.0-98.0); NRBC Abs Auto 0.000 X10*3/uL (0.0-0.012); NRBC Pct Auto 0.0 /100WBC (0.0-0.2); Platelet Count 204 X10*3/uL (160-400); Red Blood Count 4.56 X10*6/uL (4.20-5.50); White Blood Count 4.5 X10*3/uL (4.8-10.8)
[2025-01-23 11:24] LABS: Alanine Aminotransferase 18 U/L (0-31); Albumin Level 4.3 g/dL (3.5-5.0); Alkaline Phosphatase 53 U/L (39-117); Anion Gap 11 (12-20); Aspartate Amino Transferase 23 U/L (5-31); Blood Urea Nitrogen 17 mg/dL (9-16); Calcium 9.1 mg/dL (8.4-10.2); Carbon Dioxide 29 mmol/L (22-29); Chloride 107 mmol/L (96-108); Cholesterol 245 mg/dL (<200); Estimated Glomerular Filt Rate > 60; HDL Cholesterol 66 mg/dL (>40); Potassium 4.7 mmol/L (3.3-5.1); Sodium 142 mmol/L (135-145); Total Protein 6.9 g/dL (6.5-8.0); Triglycerides 124 mg/dL (<150)
== END 2025-01-23 08:51 | disposition home or self-care (01) ==
LOC: HO.HMGCLDS 08:50
PROVIDERS: PCP Internal Medicine; Visit Provider Internal Medicine
DX: Z00.00 Encounter for general adult medical examination without abnormal findings (principal); E78.5 Hyperlipidemia, unspecified; Z12.31 Encounter for screening mammogram for malignant neoplasm of breast
CPT/HCPCS: 36415; 80053; 80061; 81001; 82306; 84443; 85025

== ENCOUNTER 2025-03-13 08:43 | Outpatient (REF) | payer OTHER, SELFPAY | END 2025-03-13 08:44 | disposition home or self-care (01) | LOC: HO.MAMMO 08:43 | PROVIDERS: PCP Internal Medicine; Visit Provider Internal Medicine | DX: Z12.31 Encounter for screening mammogram for malignant neoplasm of breast (principal) | CPT/HCPCS: 77063; 77067 ==

== ENCOUNTER → 2025-03-13 08:45 | Outpatient (BNV) | payer OTHER, SELFPAY | PROVIDERS: PCP Internal Medicine; Visit Provider Internal Medicine | DX: Z12.31 Encounter for screening mammogram for malignant neoplasm of breast (principal) | CPT/HCPCS: 77063; 77067 ==